=== PATIENT | female | born 1945 | race Hispanic/Latino ===

== ENCOUNTER 2016-09-17 23:14 | Emergency (ER) | payer SELFPAY ==
[2016-09-17 23:17] VITALS: BP 218/96; PULSE 84; RESP 16; O2SAT 97
--- NOTE | 2016-09-17 23:53 | ED.REPORT ---
HPI-General Illness Date of Service September 17, 2016 ED Provider: Kate Harris MD Pt is a 71 y/o female w/ a hx of HTN, NIDDM, hyperlipidemia, presenting to the ED with her daughter c/o hyperglycemia of over 400 onset about 2 days ago. The patient uses Metformin for her diabetes and takes Lisinopril 40 mg and Losartan 50 mg for blood pressure. She denies missing any doses. She c/o associated urinary frequency, mild headache. Pt denies any recent illness, fever, chills, nausea, vomiting, abdominal pain, chest pain, SOB. Nursing Notes Stated Complaint: HIGH BLOOD SUGAR Chief Complaint: General Complaint Nursing Notes Reviewed: Yes Allergies: Coded Allergies: No Known Allergies (Unverified , 09/17/16) Scheduled Glipizide (Glipizide) 5 Mg Tablet 5 MG PO DAILY Hydrochlorothiazide (Hydrochlorothiazide) 25 Mg Tablet 25 MG PO DAILY General Time Seen by MD: 23:52 Chief Complaint Other (hyperglycemia) Hx Obtained From: Patient, Daughter Arrived By: Walk-in Sudden in Onset?: No Onset Occurred: 2 days ago Symptom Duration: Since onset Location: : Head Quality: Aching Severity: Current: Mild Severity: Maximum: Mild Past Medical History Past Medical History NIDDM Hypertension Hyperlipidemia Past Surgical History None reported Smoking History Unknown if Ever Smoker Ambulatory Status Independent Review of Systems Full Review of Systems Constitutional: Denies: Chills, Fever Respiratory: Denies: Non-productive cough, Pleuritic pain, Shortness of breath Cardiovascular: Denies: Chest pain, Dyspnea on exertion GI: Denies: Abdominal pain, Diarrhea, Nausea, Vomiting Female: Reports: Urinary frequency Endocrine: Reports: Polyuria Complete sys rev & neg: except as marked. Physical Exam Vital Signs Vital Signs Date Time Temp Pulse Resp B/P Pulse Ox O2 Delivery O2 Flow Rate FiO2 09/17/16 23:17 36.3 84 16 218/96 97 Room Air Initial VS: Reviewed Head / Eyes: Atraumatic, Normocephalic, PERRL ENT: Mucous membranes moist, Conjunctiva normal, No scleral icterus Neck: Supple, Full range of motion Respiratory: Breath sounds normal, Clear to auscultation, No respiratory distress Extremities: Vascular intact, Neuro intact, No swelling, No tenderness Skin: Warm, Dry, No cyanosis Neurologic: Alert, Oriented, Nonfocal Psychiatric: Mood/affect normal, Behavior normal, Normal thought content General/Constitutional: Awake, Alert, No acute distress, Well appearing, Cooperative, Not toxic appearing Cardiovascular: Heart rate NL, Regular rhythm Heart Sounds / Murmur: Positive: Murmur present... (III/) Abdomen: Atraumatic, Soft, Non-tender, No guarding, No rebound, No distention, No palpable mass Tenderness/Guarding/Rebound: Negative: Tender RUQ... Interpretation & Diagnostics Lab Results Interpretation Result Diagram: 09/18/16 0010 09/18/16 0010 Test 09/18/16 00:10 09/18/16 00:23 White Blood Count 8.5th/mm3 (3.8-10.1) Red Blood Count 3.98mil/mm3 (3.90-5.20) Hemoglobin 11.8g/dL (12.0-15.6) Hematocrit 34.9% (35.0-46.0) Mean Corpuscular Volume 87.7fL (81-100) Mean Corpuscular Hemoglobin 29.6pg (27.0-35.0) Mean Corpuscular Hemoglobin Concent 33.8% (32.0-37.0) Red Cell Distribution Width 12.8% (12.3-15.4) Platelet Count 283bil/L (150-400) Neutrophils (%) (Auto) 54.2% (40-74) Lymphocytes (%) (Auto) 35.3% (14-46) Monocytes (%) (Auto) 7.2% (4-12) Eosinophils (%) (Auto) 2.7% (0-5) Basophils (%) (Auto) 0.2% (0-3) Sodium Level 134mEq/L (134-144) Potassium Level 3.8mEq/L (3.5-5.2) Chloride Level 97mEq/L (97-108) Carbon Dioxide Level 20mmol/L (18-29) Blood Urea Nitrogen 17mg/dL (8-27) Creatinine 1.05mg/dL (0.57-1.00) Estimat Glomerular Filtration Rate 74mL/min (>59) Glucose Level 480mg/dL (60-99) Calcium Level 9.2mg/dL (8.5-10.1) Magnesium Level 1.6mg/dL (1.6-2.6) Total Bilirubin 0.2mg/dL (0.0-1.2) Aspartate Amino Transf (AST/SGOT) 17U/L (0-50) Alanine Aminotransferase (ALT/SGPT) 19U/L (0-32) Alkaline Phosphatase 289U/L (25-165) Troponin T 0.010ug/L (0.0-0.011) Total Protein 7.6g/dL (6.4-8.4) Albumin 4.3g/dL (3.4-5.0) Lipase 49U/L (13-60) Hold Melchor Top Tube Received (Received) Hold Urine Received (Received) ECG Interpretation ECG Interpretation: Sinus rhythm rate 71 LVH Time: 00:26 Interpreted by: ED physician Normal ECG Interpretation: No acute ischemic changes X-Ray Chest Interpretation View: Portable, 1 view Interpretation / Wet Read by: Wet read ED physician NL X-Ray Chest Findings: No infiltrate, Normal lung markings, Normal heart size, Normal mediastinum, Normal great vessels, No fracture, Soft tissues normal , No acute disease, No sail sign, NL cardiothymic shadow Re-Eval/Medical Decision Time of Eval: 02:08 Re-Evaluation/Progress Note: Pt rechecked. Feeling better. She has basically no headache now. BP 174/62. Blood glucose 268. Time of Eval: 02:34 Re-Evaluation/Progress Note: Pt rechecked. Informed pt of plan for treatment. Pt understands and agrees with plan for treatment. F/U instructions and RTER warnings given. All questions addressed. Counseled Regarding: Diagnosis, Lab results, Need for follow-up, When/why to return to ED Discharge & Departure Primary Impression: Severe hypertension Additional Impression: Hyperglycemia Disposition: Home Discharge Condition All VS Reviewed: Yes Condition: Stable Additional Instructions: Your blood pressure and blood sugar are too high today. Both have come down while you were in the ER You need to add some pills to your usual medication. You need to add Glypizide 5mg daily to your metformin for your diabetes - I have given you a month prescription You need to add hydrochlorthiazide to your losartan for blood pressure -I have given you a month prescription Your prescriptions have been electronically sent to [facility] for you today You need to keep your apt with Dr Torres next week and let him know how these new medications are working for you. Your lab work was reassuring today. One test (the alkaline phosphotase) was a bit high. Dr Torres may want to recheck that in the near future. There is no indication of severe dieases (infection or heart attack) to be causing today's issues. Referrals: Jorge Alberto Torres MD Attestation Portions of this note were transcribed by Eldon Ang. I, Dr. Harris personally performed the history, physical exam and medical decision-making; I reviewed and confirmed the accuracy of the information in the transcribed note. Signed by Susie Modi, 09/17/16 - [id number] copies to: Jorge Alberto Torres MD, Shawna L MD September 17, 2016 23:53 ELDON ANG September 17, 2016 23:59
[2016-09-18] MEDS ORDERED: 0.9% Sodium Chloride 1,000 ML IV ONE (00:10)
[2016-09-18 00:26] LABS: BASOPHILS % (AUTO) 0.2 % (0-3); EOSINOPHILS % (AUTO) 2.7 % (0-5); MONOCYTES % (AUTO) 7.2 % (4-12); Mean Corpuscular Hemoglobin 29.6 pg (27.0-35.0); Mean Corpuscular Volume 87.7 fL (81-100); NEUTROPHILS % (AUTO) 54.2 % (40-74); Platelet Count 283 bil/L (150-400)
[2016-09-18 01:31] LABS: Magnesium 1.6 mg/dL (1.6-2.6); TROPONIN T 0.01 ug/L (0.0-0.011)
[2016-09-18] MEDS ORDERED: HYDR25TA4 PO (02:31)
[2016-09-18] MEDS ORDERED: GLPZ5T PO (02:31)
[2016-09-18 03:19] VITALS: BP 165/50; PULSE 69; RESP 16; O2SAT 99
--- NOTE | 2016-09-18 09:19 | DRSVH ---
PROCEDURE: X-RAY CHEST ONE VIEW, PORTABLE ([id number]) INDICATIONS: hypertension TECHNIQUE: One view of the chest was acquired. COMPARISON: [facility], , CHEST 2VW, 05/30/2007, 0:25. FINDINGS: Surgical changes and devices: None. Lungs and pleura: No pleural effusions or pneumothorax. Lungs are clear. Mediastinum: Mediastinal contours appear normal. Heart size is normal. Bones and chest wall: No suspicious bony lesions. Overlying soft tissues appear unremarkable. Mild lateral curvature of the spine. IMPRESSION: No acute disease. Dictated by: Salvador Jerry M.D. on 09/18/2016 at 9:16 Approved by: Salvador Jerry M.D. on 09/18/2016 at 9:18
== END 2016-09-18 02:40 | disposition home or self-care (01) ==
LOC: SED 23:14
DX: I10 Essential (primary) hypertension (principal); E11.65 Type 2 diabetes mellitus with hyperglycemia; R51 Headache; E78.5 Hyperlipidemia, unspecified; Z79.84 Long term (current) use of oral hypoglycemic drugs
CPT/HCPCS: 36415; 71010; 80053; 82948; 83690; 83735; 84484; 85025; 93005; 96360; 99285; J7030